=== PATIENT | male | born 1960 | race Caucasian/White ===

== ENCOUNTER 2019-07-16 16:41 | Emergency (ER) | payer OTHER ==
[~2019-07-16] VITALS: Ht 177.8 cm; Wt 79.4 kg
[2019-07-16 16:58] VITALS: BP 166/92; Ht 177.8 cm; Wt 79.4 kg
== END 2019-07-16 17:08 | disposition other institution (70) ==
LOC: ED 16:41
DX: Z02.89 Encounter for other administrative examinations (principal)